=== PATIENT | male | born 1970 | race Caucasian/White ===

== ENCOUNTER 2021-07-24 15:11 | Inpatient (IN) | payer BC ==
[~2021-07-24] VITALS: Ht 188 cm; Wt 101.6 kg
[2021-07-24 16:02] LABS: HEMOGLOBIN 16.5 gm/dl (14.0-17.5); RED BLOOD COUNT 5.2 M/UL (4.20-5.50); WHITE BLOOD COUNT 11.8 K/UL (4.5-11.0)
[2021-07-24 16:27] LABS: BUN/CREATININE RATIO 20 (0-10)
[2021-07-24] MEDS ORDERED: ALEVE220 MG PO (21:14)
[2021-07-25 08:20] LABS: RED BLOOD COUNT 4.84 M/UL (4.20-5.50)
[2021-07-25 08:29] LABS: HEMOGLOBIN 14.5 gm/dl (14.0-17.5); WHITE BLOOD COUNT 8.2 K/UL (4.5-11.0)
[2021-07-25 08:57] LABS: BUN/CREATININE RATIO 25 (0-10)
[2021-07-26 07:20] LABS: HEMOGLOBIN 14.3 gm/dl (14.0-17.5); RED BLOOD COUNT 4.78 M/UL (4.20-5.50); WHITE BLOOD COUNT 7.8 K/UL (4.5-11.0)
[2021-07-26 07:47] LABS: BUN/CREATININE RATIO 27 (0-10)
[2021-07-27 04:39] LABS: RED BLOOD COUNT 4.84 M/UL (4.20-5.50); WHITE BLOOD COUNT 8.2 K/UL (4.5-11.0)
[2021-07-27 05:07] LABS: BUN/CREATININE RATIO 31 (0-10)
[2021-07-28 05:33] LABS: HEMOGLOBIN 14.6 gm/dl (14.0-17.5); RED BLOOD COUNT 4.73 M/UL (4.20-5.50)
[2021-07-28 05:34] LABS: WHITE BLOOD COUNT 10.6 K/UL (4.5-11.0)
[2021-07-28 06:33] LABS: BUN/CREATININE RATIO 30 (0-10)
[2021-07-29 03:54] LABS: HEMOGLOBIN 14.8 gm/dl (14.0-17.5); RED BLOOD COUNT 4.82 M/UL (4.20-5.50)
[2021-07-29 03:59] LABS: WHITE BLOOD COUNT 13.9 K/UL (4.5-11.0)
[2021-07-29 04:15] LABS: BUN/CREATININE RATIO 25 (0-10)
[2021-07-30 06:21] LABS: HEMOGLOBIN 15.2 gm/dl (14.0-17.5); RED BLOOD COUNT 4.92 M/UL (4.20-5.50)
[2021-07-30 06:48] LABS: BUN/CREATININE RATIO 26 (0-10)
--- NOTE | 2021-07-30 10:16 | NUR ---
PT ROOM AIR O2 SAT IS 96%.
[2021-07-30] MEDS ORDERED: BUDESONIDE0.5 MG/2 M NEB ×2 (11:04→11:15)
[2021-07-30] MEDS ORDERED: IPRAT-ALBUT 0.5-3 ML NEB ×2 (11:04→11:15)
[2021-07-30] MEDS ORDERED: BENZONATATE100 MG PO ×2 (11:04→11:15)
[2021-07-30] MEDS ORDERED: DOXYCYCLINE HY100 MG PO (11:14)
[2021-07-30] MEDS ORDERED: AEROECLIPSE II1 EACH INH (11:14)
[2021-07-30] MEDS ORDERED: PROTONIX 40 MG40 M1 PO ×2 (11:14→11:15)
[2021-07-30] MEDS ORDERED: DEXAMETHASONE2 MG PO (11:14)
[2021-07-30] MEDS ORDERED: ELIQUIS2.5 MG PO (11:40)
== END 2021-07-30 15:00 | disposition home or self-care (01) | DRG 177 ==
LOC: ER1 15:11 → CDU 18:30 → M/S 18:30
PROVIDERS: Physician Assistant; ADMIT Internal Medicine
PROC: 8E0ZXY6 Isolation (ICD-10-PCS; principal; 2021-07-24)
PROC: XW033E5 Introduction of Remdesivir Anti-infective into Peripheral Vein, Percutaneous Approach, New Technology Group 5 (ICD-10-PCS; 2021-07-24)
PROC: 3E0333Z Introduction of Anti-inflammatory into Peripheral Vein, Percutaneous Approach (ICD-10-PCS; 2021-07-24)
PROC: XW0DXM6 Introduction of Baricitinib into Mouth and Pharynx, External Approach, New Technology Group 6 (ICD-10-PCS; 2021-07-25)
DX: U07.1 COVID-19 (principal); J12.82 Pneumonia due to coronavirus disease 2019; J96.01 Acute respiratory failure with hypoxia; J15.9 Unspecified bacterial pneumonia; E87.1 Hypo-osmolality and hyponatremia; Z23 Encounter for immunization; Z79.899 Other long term (current) drug therapy
CPT/HCPCS: 36415; 36600; 71045; 80053; 82550; 82553; 82728; 82803; 83605; 83615; 83874; 84484; 85025; 85379; 86140; 87040; 93005; 94640; 94664; 94760; 96374; 99285; J0696; J1100; J1650; J7030; J7070; Q9967; U0002